=== PATIENT | male | born 1985 | race African-American/Black ===

== ENCOUNTER → 2019-09-07 | Emergency (ER) | payer OTHER, MEDICAID ==
[~2019-09-07] VITALS: Ht 182.9 cm; Wt 99.8 kg
[2019-09-07 05:30] VITALS: BP 133/95
== END | disposition left against medical advice (07) ==
LOC: EDBD 05:03 → ER 05:03
DX: R51 Headache (principal); Z53.21 Procedure and treatment not carried out due to patient leaving prior to being seen by health care provider
CPT/HCPCS: 70450; 72125